=== PATIENT | female | born 1940 | race Caucasian/White ===

== ENCOUNTER 2024-08-12 18:33 | Emergency (ER) | payer OTHER, MEDICAID ==
[~2024-08-12] VITALS: Ht 157.5 cm; Wt 59.0 kg
[2024-08-12] MEDS ORDERED: QUET25TA PO (19:04)
[2024-08-12] MEDS ORDERED: CLOP75TA33 PO (19:04)
[2024-08-12] MEDS ORDERED: INSU100I26 SQ (19:04)
[2024-08-12] MEDS ORDERED: QUET100T PO (19:04)
[2024-08-12] MEDS ORDERED: CHOL2000 PO (19:04)
[2024-08-12] MEDS ORDERED: MELA1TAB53 PO (19:04)
[2024-08-12] MEDS ORDERED: GUAI-1197 PO (19:04)
[2024-08-12] MEDS ORDERED: ATOR40TA PO (19:04)
[2024-08-12] MEDS ORDERED: EYE MULTIVITAMIN PO (19:04)
[2024-08-12] MEDS ORDERED: SERT-440 PO (19:04)
[2024-08-12] MEDS ORDERED: BENZ200C53 PO (19:04)
[2024-08-12 19:42] LABS: BASOPHILS % (AUTO) 0.6 % (0.0-2.0); EOSINOPHILS # (AUTO) 0.5 K/uL (0.0-0.7); EOSINOPHILS % (AUTO) 6.5 % (0.0-7.0); HEMATOCRIT 29.1 % (31.2-41.9); HEMOGLOBIN 9.8 g/dL (10.9-14.3); LYMPHOCYTES # (AUTO) 2.1 K/uL (0.8-4.8); MEAN CORPUSCULAR HEMOGLOBIN 28.7 uug (24.7-32.8); MEAN CORPUSCULAR HGB CONC 34 g/dL (32.3-35.6); MEAN CORPUSCULAR VOLUME 84.7 fL (75.5-95.3); MONOCYTES # (AUTO) 0.4 K/uL (0.1-1.30); MONOCYTES % (AUTO) 6.3 % (0.0-11.0); NEUTROPHILS % (AUTO) 56.6 % (38.5-71.5); PLATELET COUNT (AUTO) 209 K/uL (179-408); RED BLOOD CELL COUNT(AUTO) 3.43 MIL/uL (3.63-4.92); RED CELL DISTRIBUTION WIDTH 14.6 % (12.3-17.7); WHITE BLOOD COUNT (AUTO) 7.1 K/uL (3.8-11.8)
[2024-08-12 19:45] LABS: DIFFERENTIAL COMMENT 1
[2024-08-12 19:52] LABS: CALCIUM 7.5 mg/dL (8.5-10.1); CARBON DIOXIDE 28 mmol/L (21-32); CHLORIDE 103 mmol/L (98-107); CREATININE 1.2 mg/dL (0.6-1.3); GLUCOSE 105 mg/dL (74-106); POTASSIUM 3.9 mmol/L (3.5-5.1); SODIUM SERUM 141 mmol/L (136-145); UREA NITROGEN, BLOOD 34 mg/dL (7-18)
[2024-08-12 19:58] LABS: ALANINE AMINOTRANSFERASE 29 U/L (14-59); ALBUMIN 3.2 g/dL (3.4-5.0); ALKALINE PHOSPHATASE 94 U/L (50-136); ASPARTATE AMINOTRANSFERASE 35 U/L (15-37); BILIRUBIN,TOTAL 0.4 mg/dL (0.2-1.0); TOTAL PROTEIN, SERUM 6.2 g/dL (6.4-8.2)
[2024-08-13 01:03] VITALS: BP 113/56; TEMP 98.6; O2SAT 96
== END 2024-08-13 01:02 ==
LOC: ER 18:33
DX: S61.412A Laceration without foreign body of left hand, initial encounter (principal); S80.02XA Contusion of left knee, initial encounter; R41.82 Altered mental status, unspecified; R29.6 Repeated falls; E11.9 Type 2 diabetes mellitus without complications; R51.9 Headache, unspecified; F03.90 Unspecified dementia, unspecified severity, without behavioral disturbance, psychotic disturbance, mood disturbance, and anxiety; Z79.02 Long term (current) use of antithrombotics/antiplatelets; Z79.899 Other long term (current) drug therapy; W18.39XA Other fall on same level, initial encounter; Y93.89 Activity, other specified; Y92.89 Other specified places as the place of occurrence of the external cause; Y99.8 Other external cause status
CPT/HCPCS: 36415; 70450; 71250; 73120; 73560; 85025; A4606; A4663